=== PATIENT | male | born 1955 | race Caucasian/White ===

== ENCOUNTER 2017-03-07 16:15 | Inpatient (IN) | payer OTHER ==
[~2017-03-07] VITALS: Ht 175.3 cm; Wt 58.5 kg
[~2017-03-07 16:15] MED LIST: ASPIRIN81 M2 PO; COREG12.5 M1 GT; COREG25 M1 PO; DAILY VALUE1 EACH PO; DAILY VITAMIN1 EAC8 GT; DEPAKOTE500 MG PO; DILANTIN INFATA50 MG PO; DILANTIN-1125 MG/5 M GT; DUONEB 2.5-0.5 M3 ML IH; EXELON PATCH4.6 MG TD; EXELON PATCH9.5 MG TD; FOLIC ACID1 MG GT; K-DUR20 MEQ GT; K-SOL40 MEQ/15 PO; KEFLEX500 MG GT; KEFLEX500 MG PO; KEPPRA100 MG/1 M PO; KEPPRA500 MG GT; KEPPRA750 MG PO; LASIX20 MG PO; LEVAQUIN500 MG GT; LOVENOX40 MG/0.4 SC; LOW DOSE ASPIRI81 M1 GT; MAG-OXIDE400 MG GT; MAGNESIUM OXID400 MG PO; MELATONIN5 M1 PO; MULTI-DELYN473 M1 GT; NEURONTIN100 MG GT; NORVASC10 MG GT; NORVASC5 MG PO; PREVACID30 MG GT; PRILOSEC20 MG PO; PROZAC20 MG PO; SEROQUEL12.5 MG PO; TAB-A-VITE1 EACH GT; THIAMINE HCL100 MG GT; TRAZODONE HCL50 MG PO; VITAMIN B-1100 MG GT; ZOFRAN4 MG GT; ZOLOFT25 MG PO; ZOLOFT50 MG PO
[2017-03-07 20:07] LABS: EOSINOPHIL (%) 2.5 % (0-5); EOSINOPHIL COUNT 0.2 K/uL (0-0.3); HEMATOCRIT 26.3 % (38.0-50.0); IMMATURE GRANULOCYTE (%) 0.5 % (0.0-0.7); INSTRUMENT ABS NEUTROPHIL CT 5.3 K/uL; LYMPHOCYTE COUNT 1.8 K/uL (1.0-2.8); MCH 32.7 PG (29.0-34.0); MCHC 33.5 G/DL (30.0-36.0); MCV 97.8 FL (86-99); MEAN PLAT.VOLUME 9.5 uM^3 (9.0-12.4); MONOCYTE (%) 15.4 % (3-12); MONOCYTE COUNT 1.3 K/uL (0-0.8); NEUTROPHIL (%) 60.7 % (45-76); NEUTROPHIL COUNT 5.3 K/uL (1.8-6.4); PLATELET COUNT 199 K/uL (156-360); RBC DIS.WIDTH-CV 12.8 % (11.8-14.6); RBC DIS.WIDTH-SD 45.7 % (39-53); RED BLOOD COUNT 2.69 M/uL (4.00-5.50); WHITE BLOOD COUNT 8.7 K/uL (4.1-10.2)
[2017-03-07 20:09] LABS: ADD MIUA? YES; BILIRUBIN NEGATIVE; BLOOD SMALL; COLOR AMBER ((YELLOW)); GLUCOSE (STRIP) NEGATIVE; KETONES NEGATIVE; LEUKOCYTES LARGE; NITRITE NEGATIVE; PROTEIN (STRIP) >=500; SPECIFIC GRAVITY 1.017 (1.000-1.030); UROBILINOGEN 0.2 MG/DL (0.2-1.0)
[2017-03-07] MEDS ORDERED: DULCOLAX10 MG PR (20:10)
[2017-03-07] MEDS ORDERED: FLEET ENEMA-AD118 ML PR (20:10)
[2017-03-07] MEDS ORDERED: PHILLIPS'400 MG/5 M PO (20:10)
[2017-03-07] MEDS ORDERED: DEPAKOTE250 MG PO (20:11)
[2017-03-07] MEDS ORDERED: DEPAKOTE500 MG PO (20:11)
[2017-03-07] MEDS ORDERED: FLUOXETINE HCL20 MG PO (20:12)
[2017-03-07] MEDS ORDERED: PROZAC40 MG PO (20:12)
[2017-03-07] MEDS ORDERED: KEPPRA100 MG/1 M PO (20:13)
[2017-03-07] MEDS ORDERED: MAGOX 400400 MG PO (20:13)
[2017-03-07 20:16] LABS: INTER. NORMALIZED RATIO 1.2; PROTHROMBIN TIME 13.2 SEC (10.2-12.9)
[2017-03-07] MEDS ORDERED: TYLENOL REGULA325 MG PO ×2 (20:26→20:27)
[2017-03-07 20:28] LABS: CHLORIDE 108 mEq/L (99-109); POTASSIUM 3.7 mEq/L (3.7-5.4); SODIUM 138 mEq/L (136-147)
[2017-03-07 20:30] LABS: GLUCOSE 112 mg/dL (70-99)
[2017-03-07 20:31] LABS: ANION GAP 6 MEQ/L (2-14)
[2017-03-07 20:33] LABS: GFR ESTIMATE (CALCULATED) > 59 mL/min/
[2017-03-07 20:34] LABS: UREA NITROGEN (BUN) 18 mg/dL (9-23)
[2017-03-07 20:48] LABS: CASTS NONE SEEN /LPF; EPITHELIAL CELLS NONE SEEN /HPF; MUCUS NONE SEEN /LPF
[2017-03-07 20:49] LABS: BACTERIA 2+ /HPF; RED BLOOD CELLS NONE SEEN /HPF (0-5); UCUL ADDED? YES; WHITE BLOOD CELLS TNTC /HPF (0-5)
[2017-03-08 01:17] VITALS: BP 150/70
[2017-03-08 04:13] VITALS: BP 113/65
[2017-03-08 06:22] LABS: HEMATOCRIT 26.6 % (38.0-50.0); MCH 34.1 PG (29.0-34.0); MCHC 34.6 G/DL (30.0-36.0); MCV 98.5 FL (86-99); MEAN PLAT.VOLUME 10.1 uM^3 (9.0-12.4); PLATELET COUNT 218 K/uL (156-360); RBC DIS.WIDTH-CV 12.7 % (11.8-14.6); RBC DIS.WIDTH-SD 45.4 % (39-53); WHITE BLOOD COUNT 7.9 K/uL (4.1-10.2)
[2017-03-08 06:52] LABS: ANION GAP 8 MEQ/L (2-14); CHLORIDE 110 MEQ/L (99-109); GFR ESTIMATE (CALCULATED) > 59 mL/min/; GLUCOSE 95 mg/dL (70-99); SAMPLE HEMOLYSIS CHECK 0; SAMPLE ICTERIC CHECK 0; SAMPLE LIPEMIA CHECK 0; SODIUM 143 MEQ/L (136-147); UREA NITROGEN (BUN) 10 mg/dL (9-23)
[2017-03-08 08:57] VITALS: BP 146/66
[2017-03-08 13:00] VITALS: BP 116/62
[2017-03-08 16:18] VITALS: BP 132/74
[2017-03-08 22:33] LABS: HEMATOCRIT 30.3 % (38.0-50.0); MCH 32.6 PG (29.0-34.0); MCHC 33.3 G/DL (30.0-36.0); MCV 97.7 FL (86-99); PLATELET COUNT 248 K/uL (156-360); RBC DIS.WIDTH-CV 12.7 % (11.8-14.6); RBC DIS.WIDTH-SD 45.9 % (39-53); WHITE BLOOD COUNT 9.8 K/uL (4.1-10.2)
[2017-03-08 23:00] VITALS: BP 152/71
[2017-03-09 04:19] VITALS: BP 97/53
[2017-03-09 06:39] LABS: HEMATOCRIT 27.7 % (38.0-50.0); MCV 98.2 FL (86-99)
[2017-03-09 07:04] LABS: ANION GAP 6 MEQ/L (2-14); CHLORIDE 109 MEQ/L (99-109); GFR ESTIMATE (CALCULATED) > 59 mL/min/; GLUCOSE 98 mg/dL (70-99); POTASSIUM 4.7 MEQ/L (3.7-5.4); SAMPLE HEMOLYSIS CHECK 0; SAMPLE ICTERIC CHECK 0; SAMPLE LIPEMIA CHECK 0; SODIUM 142 MEQ/L (136-147); UREA NITROGEN (BUN) 8 mg/dL (9-23)
[2017-03-09 07:46] VITALS: BP 98/54
[2017-03-09 11:02] VITALS: BP 87/49
[2017-03-09 16:25] VITALS: BP 103/59
[2017-03-09 19:42] VITALS: BP 137/63
[2017-03-10 00:36] VITALS: BP 120/65
[2017-03-10 03:54] VITALS: BP 117/58
[2017-03-10 06:26] LABS: HEMATOCRIT 26.4 % (38.0-50.0); MCV 98.1 FL (86-99)
[2017-03-10 08:00] VITALS: BP 115/71
[2017-03-10 11:20] VITALS: BP 130/55
[2017-03-10 16:27] VITALS: BP 116/63
[2017-03-10 19:29] VITALS: BP 119/61
[2017-03-11 00:10] VITALS: BP 111/59
[2017-03-11 05:25] VITALS: BP 136/66
[2017-03-11 11:23] VITALS: BP 99/54
[2017-03-11 16:49] VITALS: BP 145/70
[2017-03-11 20:26] VITALS: BP 102/57
[2017-03-11 23:59] VITALS: BP 112/59
[2017-03-12 05:13] VITALS: BP 132/63
[2017-03-12 08:51] VITALS: BP 122/63
[2017-03-12 13:42] VITALS: BP 125/70
[2017-03-12 15:48] VITALS: BP 116/63
[2017-03-12 19:35] VITALS: BP 149/79
[2017-03-12 23:48] VITALS: BP 104/59
[2017-03-13 03:59] VITALS: BP 88/54
[2017-03-13 05:22] VITALS: BP 118/56
[2017-03-13 07:11] VITALS: BP 130/73
[2017-03-13 11:33] VITALS: BP 119/63
[2017-03-13 20:12] VITALS: BP 93/52
[2017-03-13 23:27] VITALS: BP 107/57
[2017-03-14 04:15] VITALS: BP 108/67
[2017-03-14 08:07] VITALS: BP 140/70
[2017-03-14 10:34] VITALS: BP 109/63
[2017-03-14] MEDS ORDERED: AUGMENTIN875 MG PO (14:06)
[2017-03-14] MEDS ORDERED: CARVEDILOL12.5 MG PO (14:07)
[2017-03-14] MEDS ORDERED: HYDROCODON-ACE1 EAC7 PO (14:09)
== END 2017-03-14 18:12 | DRG 481 ==
LOC: EME 16:15 → 3EAST 22:50 → EDOF 22:50 → 3EAST 03-08 00:52
PROVIDERS: Emergency Medicine; Internal Medicine; Orthopaedic Surgery
PROC: 0QS604Z Reposition Right Upper Femur with Internal Fixation Device, Open Approach (ICD-10-PCS; principal; 2017-03-08)
PROC: 0JB70ZX Excision of Back Subcutaneous Tissue and Fascia, Open Approach, Diagnostic (ICD-10-PCS; 2017-03-13)
DX: S72.001A Fracture of unspecified part of neck of right femur, initial encounter for closed fracture (principal); G40.909 Epilepsy, unspecified, not intractable, without status epilepticus; R13.10 Dysphagia, unspecified; W19.XXXA Unspecified fall, initial encounter; I10 Essential (primary) hypertension; N39.0 Urinary tract infection, site not specified; G31.2 Degeneration of nervous system due to alcohol; L02.212 Cutaneous abscess of back [any part, except buttock and flank]; F03.90 Unspecified dementia, unspecified severity, without behavioral disturbance, psychotic disturbance, mood disturbance, and anxiety
CPT/HCPCS: 71010; 73501; 73502; 76000; 80048; 81003; 85014; 85018; 85025; 85027; 85610; 86900; 86901; 87070; 87075; 87077; 87086; 87186; 87205; 88304; 93005; 97530 GP; 99281; 99285; C1713; J0690; J0696; J1100; J1170; J1650; J2250; J2405; J3010; J7030; J7040; J7042; J7050